=== PATIENT | female | born 1975 | race Caucasian/White ===

== ENCOUNTER 2017-03-27 18:51 | Emergency (ER) | payer OTHER | END 2017-03-27 22:17 | disposition home or self-care (01) | LOC: FER 18:51 | DX: J01.90 Acute sinusitis, unspecified (principal); J20.9 Acute bronchitis, unspecified; F17.210 Nicotine dependence, cigarettes, uncomplicated | CPT/HCPCS: 71020; 87804; 87899; 94640; 94664 ==

== ENCOUNTER 2017-03-30 10:31 | Emergency (ER) | payer OTHER ==
[2017-03-30 11:32] LABS: BASOPHIL 0.3 % (0-2); EOSINOPHIL 0.3 % (0-5); HCT 34.4 % (37.0-47.0); HGB 11.7 g/dl (12.5-16.0); LYMPHOCYTE 10.9 % (15-48); MCH 32.3 pg (25.0-31.0); MONOCYTE 11.3 % (0-12); MPV 9.1 fL (6.0-9.5); NEUTROPHIL 77.2 % (41-80); PLT 340 K/uL (150-400); RBC 3.62 M/uL (4.20-5.40); RDW 15.4 % (11.5-14.0); WBC 13.4 K/uL (4.0-10.5)
== END 2017-03-30 14:28 | disposition home or self-care (01) ==
LOC: FER 10:31
PROVIDERS: Obstetrics & Gynecology
DX: J20.9 Acute bronchitis, unspecified (principal); F32.9 Major depressive disorder, single episode, unspecified; F17.210 Nicotine dependence, cigarettes, uncomplicated
CPT/HCPCS: 36415; 71020; 85025; 94640; J1100; J1885

== ENCOUNTER 2017-04-01 12:06 | Emergency (ER) | payer OTHER ==
[2017-04-01 12:38] LABS: BASOPHIL 0.3 % (0-2); EOSINOPHIL 0.1 % (0-5); HCT 34.7 % (37.0-47.0); HGB 11.7 g/dl (12.5-16.0); LYMPHOCYTE 12.4 % (15-48); MCH 32.2 pg (25.0-31.0); MCHC 33.7 g/dL (32.0-36.0); MCV 95.6 fL (78.0-100.0); MONOCYTE 7.9 % (0-12); MPV 9.4 fL (6.0-9.5); NEUTROPHIL 79.3 % (41-80); PLT 448 K/uL (150-400); RBC 3.63 M/uL (4.20-5.40); RDW 16.3 % (11.5-14.0)
[2017-04-01 12:52] LABS: ALBUMIN 3.7 g/dL (3.5-5.0); BILIRUBIN - TOTAL 0.3 mg/dL (0.1-1.0); CREATININE 0.7 mg/dL (0.5-1.0); GLOBULIN (CALCULATION) 2.7 g/dL (2.2-4.2); POTASSIUM 3.5 mmol/L (3.5-5.1); TOTAL PROTEIN 6.4 g/dL (6.4-8.3)
[2017-04-01 13:37] LABS: LACTIC ACID 1.2 mmol/L (0.5-2.2)
[2017-04-01 13:52] LABS: BILIRUBIN NEGATIVE (NEGATIVE); BLOOD NEGATIVE Ery/uL (NEGATIVE); CLARITY CLEAR (CLEAR); COLOR YELLOW (YELLOW); GLUCOSE (U) NORMAL (NORMAL); KETONE (U) NEGATIVE (NEGATIVE); LEUKOCYTES NEGATIVE Leu/uL (NEGATIVE); NITRITE NEGATIVE (NEGATIVE); PROTEIN NEGATIVE (NEGATIVE); SPECIFIC GRAVITY 1.015 (1.001-1.030); UROBILINOGEN 0.2 mg/dL (0.2-1.0)
== END 2017-04-01 16:47 | disposition home or self-care (01) ==
LOC: FER 12:06
PROVIDERS: Nurse Practitioner
DX: J18.9 Pneumonia, unspecified organism (principal); F41.9 Anxiety disorder, unspecified; R20.2 Paresthesia of skin; F17.210 Nicotine dependence, cigarettes, uncomplicated; Z79.899 Other long term (current) drug therapy
CPT/HCPCS: 36415; 71010; 80053; 81003; 83605; 83880; 85025; 85379; 87070; 87205; 93005; 94640; J0456; J1885; J2930

== ENCOUNTER 2022-05-25 17:57 | Emergency (ER) | payer OTHER ==
[2022-05-25 19:43] LABS: BASOPHIL 0.6 % (0-2); EOSINOPHIL 0.4 % (0-5); HCT 38.9 % (37.0-47.0); MCH 34.5 pg (25.0-31.0); MCHC 33.4 g/dL (32.0-36.0); MCV 103.2 fL (78.0-100.0); MONOCYTE 7.1 % (0-12); MPV 9.9 fL (6.0-9.5); NEUTROPHIL 83.3 % (41-80); NRBC 0; PLT 361 K/uL (150-400); RBC 3.77 M/uL (4.20-5.40); RDW 13.8 % (11.5-14.0); WBC 10.8 K/uL (4.0-10.5)
[2022-05-25 19:48] LABS: INR 1.08 (0.9-1.2); PROTHROMBIN TIME 13.7 SECONDS (11.9-13.9); PTT 25.7 SECONDS (24.9-34.6)
[2022-05-25 20:21] LABS: ALBUMIN 3.5 g/dL (3.4-5.0); ALKALINE PHOSHATASE 79 U/L (46-116); ALT 28 U/L (14-59); AST 26 U/L (15-37); BILIRUBIN - TOTAL 0.7 mg/dL (0.2-1.0); BUN 9 mg/dL (7-18); BUN/CREAT RATIO (CALC) 12.9 RATIO; CHLORIDE 103 mmol/L (98-107); CO2 (BICARBONATE) 24 mmol/L (21-32); GLUCOSE 101 mg/dL (74-106); POTASSIUM 3.7 mmol/L (3.5-5.1); TOTAL PROTEIN 7.5 g/dL (6.4-8.2)
[2022-05-25 20:27] LABS: INFLUENZA A NAA NEGATIVE (NEGATIVE)
[2022-05-25 20:28] LABS: CORONAVIRUS 2019 SARS-COV-2 POSITIVE (NEGATIVE)
== END 2022-05-25 21:05 | disposition other institution (70) ==
LOC: FER 17:57
PROVIDERS: Emergency Medicine; Physician Assistant
DX: S06.5X0A Traumatic subdural hemorrhage without loss of consciousness, initial encounter (principal); U07.1 COVID-19; F17.210 Nicotine dependence, cigarettes, uncomplicated; Z28.310 Unvaccinated for COVID-19; Y04.0XXA Assault by unarmed brawl or fight, initial encounter
CPT/HCPCS: 36415; 70450; 80053; 85025; 85610; 85730; G0480; J1170; J2270; J2405; U0002

== ENCOUNTER 2022-06-04 22:04 | Emergency (ER) | payer OTHER ==
[2022-06-04 22:49] LABS: BASOPHIL 0.6 % (0-2); HCT 38.6 % (37.0-47.0); HGB 12.9 g/dl (12.5-16.0); LYMPHOCYTE 27.2 % (15-48); MCH 34.1 pg (25.0-31.0); MCHC 33.4 g/dL (32.0-36.0); MCV 102.1 fL (78.0-100.0); MONOCYTE 8.6 % (0-12); MPV 9.9 fL (6.0-9.5); NEUTROPHIL 60.1 % (41-80); NRBC 0; PLT 416 K/uL (150-400); RBC 3.78 M/uL (4.20-5.40); WBC 9.8 K/uL (4.0-10.5)
[2022-06-04 23:04] LABS: ALBUMIN 3.6 g/dL (3.4-5.0); BILIRUBIN - TOTAL 0.2 mg/dL (0.2-1.0); BUN/CREAT RATIO (CALC) 12.5 RATIO; CREATININE 0.72 mg/dL (0.51-0.95); GLOBULIN (CALCULATION) 4.6 g/dL; POTASSIUM 3.5 mmol/L (3.5-5.1); TOTAL PROTEIN 8.2 g/dL (6.4-8.2)
[2022-06-04] MEDS ORDERED: SEROQUEL50 MG PO (23:31)
[2022-06-04] MEDS ORDERED: BUSPIRONE HCL7.5 MG PO (23:33)
[2022-06-04] MEDS ORDERED: PERCOCET 5-3251 EACH PO (23:35)
== END 2022-06-04 23:55 | disposition home or self-care (01) ==
LOC: FER 22:04
PROVIDERS: Internal Medicine
DX: R51.9 Headache, unspecified (principal); F41.9 Anxiety disorder, unspecified; F32.9 Major depressive disorder, single episode, unspecified
CPT/HCPCS: 36415; 70450; 80053; 83605; 84145; 85025; 87040; G0480; J3010; J3475